=== PATIENT | male | born 1985 | race Caucasian/White ===

== ENCOUNTER 2017-10-13 21:00 | Emergency (ER) | payer BC ==
--- NOTE | 2017-10-13 22:33 | ER Document Report ---
ED General - General Chief Complaint: Feels short of breath, shaky, throat swollen Stated Complaint: SHORT OF BREATH Time Seen by Provider: 10/13/17 22:09 Mode of Arrival: Ambulatory Information source: Patient TRAVEL OUTSIDE OF THE [place] IN LAST 30 DAYS: No - HPI Patient complains to provider of: Shortness of breath and back pain Onset/Duration: Sudden Quality of pain: No pain Severity: Moderate Associated symptoms: Shortness of breath. 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 He states that today he had a pain in his right upper back area. There is no aggravating or alleviating factors. He states it lasted throughout the day. He states he went home and was eating dinner as well as putting his 2 and 5-year-old to bed talking with his when he became acutely short of breath. He states his hands did start tingling after the shortness of breath. He denies nausea vomiting fevers chest pain any strokelike symptoms or other complaints. He states he was able to drive himself to the emergency department without difficulty. He states he has never had this feeling in his life before. He denies a history of anxiety. There is no family history of cardiac issues. He states he is allergic to codeine he does not take any medications on a regular basis. No history of depression. States his day was a usual day for him with no overly stressful or depressing factors. He states his has a history of thyroid issues as well as anxiety but he has never been diagnosed with either of these. - Related Data Allergies/Adverse Reactions: codeine Allergy (Verified 10/13/17 21:06) Past Medical History - General Information source: Patient - Social History Smoking Status: Never Smoker Frequency of alcohol use: Social Drug Abuse: None Occupation: maintenance foreman Lives with: Family Family History: Reviewed & Not Pertinent. denies: CAD, DM, Hypertension Patient has suicidal ideation: No Patient has homicidal ideation: No - Medical History Medical History: Negative Past Surgical History: Reports: None Review of Systems - Review of Systems Constitutional: No symptoms reported EENT: No symptoms reported Cardiovascular: See HPI Respiratory: See HPI Gastrointestinal: No symptoms reported Genitourinary: No symptoms reported Male Genitourinary: No symptoms reported Musculoskeletal: No symptoms reported Skin: No symptoms reported Hematologic/Lymphatic: No symptoms reported Neurological/Psychological: No symptoms reported Physical Exam - Vital signs Vitals: Temp Pulse Resp BP Pulse Ox 98.5 F 81 16 150/96 H 100 10/13/17 21:09 10/13/17 21:09 10/13/17 21:09 10/13/17 21:09 10/13/17 21:09 - Notes Notes: PHYSICAL EXAMINATION: GENERAL: Well-appearing, well-nourished and in no acute distress. Is mildly anxious. HEAD: Atraumatic, normocephalic. EYES: Pupils equal round and reactive to light, extraocular movements intact, sclera anicteric, conjunctiva are normal. ENT: Nares patent, oropharynx clear without exudates. Moist mucous membranes. NECK: Normal range of motion, supple without lymphadenopathy LUNGS: Breath sounds clear to auscultation bilaterally and equal. No wheezes rales or rhonchi. HEART: Regular rate and rhythm without murmurs ABDOMEN: Soft, nontender, nondistended abdomen. No guarding, no rebound. No masses appreciated. Musculoskeletal: Normal range of motion, no pitting or edema. No cyanosis. NEUROLOGICAL: Cranial nerves grossly intact. Normal speech, normal gait. Normal sensory, motor exams PSYCH: Normal mood, normal affect. SKIN: Warm, Dry, normal turgor, no rashes or lesions noted. Course - Re-evaluation Re-evalutation: 10/14/17 00:03 Labs- All tests 24 hr 10/13/17 10/13/17 23:25 23:25 WBC 6.9 RBC 4.73 Hgb 14.1 Hct 41.5 MCV 88 MCH 29.8 MCHC 34.0 RDW 13.1 Plt Count 278 Seg Neutrophils % 64.2 Lymphocytes % 29.4 Monocytes % 5.6 Eosinophils % 0.2 Basophils % 0.6 Absolute Neutrophils 4.5 Absolute Lymphocytes 2.0 Absolute Monocytes 0.4 Absolute Eosinophils 0.0 Absolute Basophils 0.0 D-Dimer 0.46 10/14/17 00:10 Labs- All tests 24 hr 10/13/17 10/13/17 10/13/17 23:25 23:25 23:25 WBC 6.9 RBC 4.73 Hgb 14.1 Hct 41.5 MCV 88 MCH 29.8 MCHC 34.0 RDW 13.1 Plt Count 278 Seg Neutrophils % 64.2 Lymphocytes % 29.4 Monocytes % 5.6 Eosinophils % 0.2 Basophils % 0.6 Absolute Neutrophils 4.5 Absolute Lymphocytes 2.0 Absolute Monocytes 0.4 Absolute Eosinophils 0.0 Absolute Basophils 0.0 D-Dimer 0.46 Sodium 146.6 H Potassium 3.8 Chloride 106 Carbon Dioxide 24 Anion Gap 17 BUN 16 Creatinine 0.80 Est GFR ( Amer) > 60 Est GFR (Non-Af Amer) > 60 Glucose 107 Calcium 10.5 H - Vital Signs Vital signs: Temp Pulse Resp BP Pulse Ox 98.5 F 81 16 150/96 H 100 10/13/17 21:09 10/13/17 21:09 10/13/17 21:09 10/13/17 21:09 10/13/17 21:09 - Laboratory Result Diagrams: 10/13/17 23:25 10/13/17 23:25 Laboratory results interpreted by me: 10/13/17 23:25 Sodium 146.6 H Calcium 10.5 H - Diagnostic Test Radiology reviewed: Image reviewed Radiology results interpreted by me: 10/13/17 23:20 no acute findings - EKG Interpretation by Md EKG shows normal: Sinus rhythm - 92 Rate: Normal When compared to previous EKG there are: Previous EKG unavailable Discharge - Discharge Clinical Impression: Shortness of breath Disposition: HOME, SELF-CARE Additional Instructions: Return to the ED if symptoms return. Follow up with your primary medical doctor.
--- NOTE | 2017-10-13 23:29 | RADIOLOGY REPORT (SQ) ---
EXAM DESCRIPTION: XR CHEST 2 VIEWS CLINICAL HISTORY: 32 years Male, sob COMPARISON: None. FINDINGS: Adequate lung volume, clear parenchyma, normal cardiac silhouette, and intact bony thorax. IMPRESSION: No acute cardiopulmonary findings.
[2017-10-13 23:35] LABS: ABSOLUTE MONOCYTES (AUTO) 0.4 10^3/uL (0.1-1.4); ABSOLUTE NEUT (AUTO) 4.5 10^3/uL (1.7-8.2); BASOPHILS % (AUTO) 0.6 % (0-2); EOSINOPHILS % (AUTO) 0.2 % (0-6); HEMATOCRIT 41.5 % (37.9-51.0); HEMOGLOBIN 14.1 g/dL (13.5-17.0); LYMPHOCYTES % (AUTO) 29.4 % (13-45); MEAN CORPUSCULAR HEMOGLOBIN 29.8 pg (27.0-33.4); MEAN CORPUSCULAR VOLUME 88 fl (80-97); MONOCYTES % (AUTO) 5.6 % (3-13); PLATELET COUNT 278 10^3/uL (150-450); RED BLOOD COUNT 4.73 10^6/uL (4.35-5.55); RED CELL DISTRIBUTION WIDTH 13.1 % (11.5-14.0); SEGMENTED NEUTROPHILS % (AUTO) 64.2 % (42-78); TOTAL CELLS COUNTED % (AUTO) 100 %; WHITE BLOOD COUNT 6.9 10^3/uL (4.0-10.5)
[2017-10-13 23:57] LABS: ANION GAP 17 (5-19); BLOOD UREA NITROGEN 16 mg/dL (7-20); CALCIUM 10.5 mg/dL (8.4-10.2); CARBON DIOXIDE 24 mmol/L (22-30); CHLORIDE 106 mmol/L (98-107); GLUCOSE 107 mg/dL (75-110); POTASSIUM 3.8 mmol/L (3.6-5.0); SODIUM 146.6 mmol/L (137-145)
[2017-10-14 00:24] VITALS: BP 118/85
--- NOTE | 2017-10-14 06:05 | EKG REPORT ---
SEVERITY:- NORMAL ECG - SINUS RHYTHM : Confirmed by: Merritt Ramirez MD 14-Oct-2017 06:05:16
== END 2017-10-14 00:24 | disposition home or self-care (01) ==
LOC: ER 21:00
DX: R06.02 Shortness of breath (principal); M54.9 Dorsalgia, unspecified
CPT/HCPCS: 36415; 71046; 80048; 84443; 85025; 85379; 93005; 93010; 99285